=== PATIENT | male | born 1980 | race Caucasian/White ===

== ENCOUNTER 2016-09-24 02:00 | Emergency (ER) | payer OTHER ==
[2016-09-24 02:15] VITALS: TEMP 97.6
[2016-09-24] MEDS ORDERED: KETOROLAC 30 MG/ML 1 ML VIAL IVP STA (02:24)
[2016-09-24] MEDS ORDERED: SODIUM CHLORIDE 0.9% 500 ML IV STA (02:24)
[2016-09-24 02:35] LABS: Basophils # (A) 0.1 k/uL (0-0.2); Basophils % (A) 1 %; CH 32.1; CHCM 35.4; Eosinophils # (A) 0.3 k/uL (0-0.7); Eosinophils % (A) 2 %; HCT 49.7 % (39.0-53.0); HDW 2.71; HGB 16.7 gm/dL (13.0-17.5); Luc # (Auto) 0.18; Luc % (Auto) 2; Lymphocytes # (A) 4.1 k/uL (1.0-4.8); Lymphocytes % (A) 38 %; MCH 30.6 pg (25.0-35.0); MCHC 33.6 g/dL (31.0-37.0); MCV 91.1 fL (80.0-100.0); Mean Platelet Volume 7.9; Monocytes # (A) 0.5 k/uL (0-1.0); Monocytes % (A) 5 %; Neutrophils # (A) 5.7 k/uL (1.3-7.7); Neutrophils % (A) 53 %; RBC 5.46 m/uL (4.30-5.90); RDW 14.4 % (11.5-15.5); WBC 10.8 k/uL (3.8-10.6); WBC (Perox) 10.77
[2016-09-24 02:44] LABS: ALT 34 U/L (21-72); AST 23 U/L (17-59); Alkaline Phosphatase 73 U/L (38-126); Anion Gap 9 mmol/L; Blood Urea Nitrogen 14 mg/dL (9-20); Calcium 9.5 mg/dL (8.4-10.2); Carbon Dioxide 25 mmol/L (22-30); Chloride 109 mmol/L (98-107); Glucose 98 mg/dL (74-99); Non-African American GFR(MDRD) >60 (>60 ml/min/1.73 sqM); Potassium 4.1 mmol/L (3.5-5.1); Sodium 143 mmol/L (137-145); Total Bilirubin 0.4 mg/dL (0.2-1.3); Total Protein 6.5 g/dL (6.3-8.2)
[2016-09-24] MEDS ORDERED: MORPHINE SULFATE 4 MG/ML SYRINGE IVP STA (03:05)
[2016-09-24] MEDS ORDERED: SODIUM CHLORIDE 0.9% 1,000 ML IV SCH (03:15)
--- NOTE | 2016-09-24 03:36 | ED ---
Abdominal Pain HPI <CassiaJaspreet haile - Last Filed: 09/24/16 05:29> - General Source: patient, RN notes reviewed, old records reviewed Mode of arrival: ambulatory Limitations: no limitations <AviNancy - Last Filed: 09/24/16 13:38> - General Chief Complaint: Abdominal Pain Stated Complaint: abd pain,hernia Time Seen by Provider: 09/24/16 02:16 - History of Present Illness Initial Comments: Physical is a 36-year-old male presenting to the emergency Department chief complaint of periumbilical abdominal pain for the past 4 days. Patient reports that he coughed on Saturday and felt a bulge occur in his abdomen. Patient reports that last he felt this her to become increasingly painful. He was urged to go to a hospital yesterday. Patient went to [facility]. He reports that time they did blood work and did a CAT scan. They informed him that he had an incarcerated hernia that needed to be reduced. Patient reports that they attempted several times to reduce the hernia in the emergency department however was unsuccessful. Patient reports that he was supposed to see a surgeon but was becoming upset with the staff and then decided to leave. Patient reports that he realized the pain is getting worse and he needed to come tonight. He has no fevers or chills. He reports normal bowel movements and normal urination. He denies any vomiting. He reports that the pain was becoming worse this evening he felt that he could not wait to see his primary care physician. (Nancy Cárdenas) - Related Data Home Medications Medication Instructions Recorded Confirmed No Known Home Medications [No 09/24/16 09/24/16 Known Home Medications] Allergies Allergy/AdvReac Type Severity Reaction Status Date / Time Penicillins Allergy Rash/Hives Verified 09/24/16 02:15 Review of Systems ROS Other: All systems not noted in ROS Statement are negative. <Jaspreet Albarado - Last Filed: 09/24/16 05:29> ROS Other: All systems not noted in ROS Statement are negative. <Clare Cárdenasily - Last Filed: 09/24/16 13:38> ROS Statement: Those systems with pertinent positive or pertinent negative responses have been documented in the HPI. Past Medical History Past Medical History: No Reported History History of Any Multi-Drug Resistant Organisms: None Reported Past Surgical History: Orthopedic Surgery Additional Past Surgical History / Comment(s): L ankle sx. Past Psychological History: Bipolar Smoking Status: Current every day smoker Past Alcohol Use History: Rare Past Drug Use History: Marijuana <Nancy Cárdenas - Last Filed: 09/24/16 13:38> General Exam <Jaspreet Albarado - Last Filed: 09/24/16 05:29> Limitations: no limitations General appearance: alert, in no apparent distress Head exam: Present: atraumatic, normocephalic, normal inspection Eye exam: Present: normal appearance, PERRL, EOMI. Absent: scleral icterus, conjunctival injection, periorbital swelling ENT exam: Present: normal exam, mucous membranes moist Neck exam: Present: normal inspection. Absent: tenderness, meningismus, lymphadenopathy Respiratory exam: Present: normal lung sounds bilaterally. Absent: respiratory distress, wheezes, rales, rhonchi, stridor Cardiovascular Exam: Present: regular rate, normal rhythm, normal heart sounds. Absent: systolic murmur, diastolic murmur, rubs, gallop, clicks GI/Abdominal exam: Present: soft, normal bowel sounds, hernia (Patient has a 3- 4 cm area of her hernia over the superior umbilical region.). Absent: distended , tenderness, guarding, rebound, rigid Extremities exam: Present: normal inspection, full ROM, normal capillary refill. Absent: tenderness, pedal edema, joint swelling, calf tenderness Back exam: Present: normal inspection Neurological exam: Present: alert, oriented X3, CN II-XII intact Psychiatric exam: Present: normal affect, normal mood Skin exam: Present: warm, dry, intact, normal color. Absent: rash <Nancy Cárdenas - Last Filed: 09/24/16 13:38> - General Exam Comments Initial Comments: 36-year-old male. No acute distress. (Nancy Cárdenas) Medical Decision Making - Lab Data Result diagrams: 09/24/16 02:26 09/24/16 02:26 <Jaspreet Albarado - Last Filed: 09/24/16 05:29> - Lab Data Result diagrams: 09/24/16 02:26 09/24/16 02:26 <Nancy Cárdenas - Last Filed: 09/24/16 13:38> - Medical Decision Making 36-year-old male presents the ED chief complaint of hernia pain in the umbilical region. Lab work in [facility] from last night was obtained. Upon review the previous chart reports that the patient left AMA. Patient had a multiple attempts to re-douce the hernia. Patient did receive the CT with contrast at the time. The CT shows there is a small fat containing supraumbilical hernia seen an associate with internal and adjacent fat stranding. Likely representing incarceration or angulation of the fat. Upon review of the chart they did try to consult the surgeon Dr. Eastman who agreed with admission and anticipated taking the patient surgery in the morning. When patient was informed of this he was upset and an ounce that he's having care if he and did not want to be there anymore. They did advise him to not but he still left AMA. At this time patient presents with a firm mass over the periumbilical region. Lab work was obtained and compared to yesterday. No evidence of any abnormalities. Discussed this case with Dr. Albarado. Patient will be kept in the emergency department and to call for surgery will be placed at 7 in the morning, for further evaluation. I myself attempted to reduce the hernia after patient received Toradol and morphine. This was unsuccessful. ( Nancy Cárdenas) - Lab Data Lab Results 09/24/16 09/24/16 Range/Units 02:26 02:26 WBC 10.8 H (3.8-10.6) k/uL RBC 5.46 (4.30-5.90) m/uL Hgb 16.7 (13.0-17.5) gm/dL Hct 49.7 (39.0-53.0) % MCV 91.1 (80.0-100.0) fL MCH 30.6 (25.0-35.0) pg MCHC 33.6 (31.0-37.0) g/dL RDW 14.4 (11.5-15.5) % Plt Count 235 (150-450) k/uL Neutrophils % 53 % Lymphocytes % 38 % Monocytes % 5 % Eosinophils % 2 % Basophils % 1 % Neutrophils # 5.7 (1.3-7.7) k/uL Lymphocytes # 4.1 (1.0-4.8) k/uL Monocytes # 0.5 (0-1.0) k/uL Eosinophils # 0.3 (0-0.7) k/uL Basophils # 0.1 (0-0.2) k/uL Sodium 143 (137-145) mmol/L Potassium 4.1 (3.5-5.1) mmol/L Chloride 109 H (98-107) mmol/L Carbon Dioxide 25 (22-30) mmol/L Anion Gap 9 mmol/L BUN 14 (9-20) mg/dL Creatinine 1.00 (0.66-1.25) mg/dL Est GFR (MDRD) Af Amer >60 (>60 ml/min/1.73 sqM) Est GFR (MDRD) Non-Af >60 (>60 ml/min/1.73 sqM) Glucose 98 (74-99) mg/dL Calcium 9.5 (8.4-10.2) mg/dL Total Bilirubin 0.4 (0.2-1.3) mg/dL AST 23 (17-59) U/L ALT 34 (21-72) U/L Alkaline Phosphatase 73 (38-126) U/L Total Protein 6.5 (6.3-8.2) g/dL Albumin 3.9 (3.5-5.0) g/dL Lipase 72 (23-300) U/L Disposition <Jaspreet Albarado - Last Filed: 09/24/16 05:29> Time of Disposition: 13:36 - Out of Hospital Transfer - Req. Specs Out of Hospital Transfer - Requested Specifics: Other Non-Acute (Unable to determine, patient dispo by Dr. Albarado) <Nancy Cárdenas - Last Filed: 09/24/16 13:38> Clinical Impression: Umbilical hernia, incarcerated Disposition: OTHER INSTITUTION NOT DEFINED Condition: Fair Instructions: Umbilical Hernia (ED) Referrals: Shane Roy MD [Primary Care Provider] - 1-2 days Chaka Joshi MD [STAFF PHYSICIAN] - 1-2 days
[2016-09-24 05:21] VITALS: RESP 18
[2016-09-24 06:52] VITALS: BP 128/71; PULSE 54
== END 2016-09-24 06:57 | disposition short-term general hospital (02) ==
LOC: EC 02:00
DX: K42.0 Umbilical hernia with obstruction, without gangrene (principal); F17.200 Nicotine dependence, unspecified, uncomplicated; Z88.0 Allergy status to penicillin
CPT/HCPCS: 36415; 80053; 83690; 85025; 99285; 96374; 96375; 96361 ×4; J2270; J1885

== ENCOUNTER 2016-10-23 08:08 | Day surgery (SDC) | payer OTHER ==
[2016-10-17 14:22] VITALS: BMI 23.0
[~2016-10-23 08:08] MED LIST: DEXAMETHASONE SOD PHOSPHATE 10 MG/ML 1 ML VIAL IV ONE; HEPARIN SODIUM,PORCINE 5,000 UNIT/ML 1 ML VIAL SQ ONE; MIDAZOLAM 2 MG/2 ML VIAL IV PRN; ONDANSETRON 4 MG/2 ML VIAL IVP ONE; SCOPOLAMINE 1.5MG/72HR PATCH TRANSDERM ONE; ceFAZolin 2 GM in SODIUM CHLORIDE 0.9% 100 ML IVPB ONE
[2016-10-23] MEDS ORDERED: LACTATED RINGERS 1,000 ML IV ONE (09:52)
[2016-10-23] MEDS ORDERED: LIDOCAINE 1% 20 ML VIAL (10MG/ML) FOR IV START INTRADERMA ONE (09:52)
--- NOTE | 2016-10-23 10:38 | P.GSHP ---
History of Present Illness H&P Date: 10/23/16 Chief Complaint: Incarcerated ventral hernia This is a 36-year-old male referred from Dr. Lucas Lomax. Patient is today for laparoscopic robotic-assisted repair of incarcerated ventral hernia. Patient developed a painful mass over his umbilicus. He was seen in the office and found have an incarcerated ventral hernia. Past Medical History Past Medical History: COPD History of Any Multi-Drug Resistant Organisms: None Reported Past Surgical History: Orthopedic Surgery Additional Past Surgical History / Comment(s): L ankle sx. Past Anesthesia/Blood Transfusion Reactions: No Reported Reaction Smoking Status: Current every day smoker - Past Family History Mother Family Medical History: Cancer Medications and Allergies Home Medications Medication Instructions Recorded Confirmed Type No Known Home Medications [No 09/24/16 10/17/16 History Known Home Medications] Allergies Allergy/AdvReac Type Severity Reaction Status Date / Time bee pollen Allergy Anaphylaxis Verified 10/17/16 14:19 Penicillins Allergy Rash/Hives Verified 10/17/16 12:21 Surgical - Exam Vital Signs Temp Pulse Resp BP Pulse Ox 98.0 F 63 18 130/82 97 10/23/16 09:49 10/23/16 09:49 10/23/16 09:49 10/23/16 09:49 10/23/16 09:49 - General well developed, no distress - Eyes PERRL - ENT normal pinna - Neck no masses - Respiratory normal expansion - Cardiovascular Rhythm: regular - Abdomen Abdomen: soft, non tender (Incarcerated ventral hernia, 3 cm above the umbilicus ) Assessment and Plan Plan: Incarcerated ventral hernia. We'll perform laparoscopic robotic-assisted repair.
[2016-10-23] MEDS ORDERED: BUPIVACAINE (PF) 0.25% 30 ML VIAL SQ ONE (11:07)
[2016-10-23] MEDS ORDERED: ROCURONIUM BROMIDE 10 MG/ML 10 ML VIAL IV ONE (11:08)
[2016-10-23] MEDS ORDERED: LIDOCAINE 1% INJ 10MG/ML (20 ML MDV) ONE (11:08)
[2016-10-23] MEDS ORDERED: fentaNYL (PF) 50 MCG/ML 2 ML AMP ONE (11:08)
[2016-10-23] MEDS ORDERED: GLYCOPYRROLATE 0.2 MG/ML 2 ML VIAL ONE (11:08)
[2016-10-23] MEDS ORDERED: MIDAZOLAM 2 MG/2 ML VIAL ONE (11:08)
[2016-10-23] MEDS ORDERED: NEOSTIGMINE 1 MG/ML 10 ML VIAL ONE (11:08)
[2016-10-23] MEDS ORDERED: PROPOFOL 10 MG/ML 20 ML VIAL IV ONE (11:08)
[2016-10-23] MEDS ORDERED: HYDROmorphone (PF) 1 MG/ML ONE (11:08)
[2016-10-23] MEDS ORDERED: SUCCINYLCHOLINE CHLORIDE 100 MG/5 ML SYR IV ONE (11:08)
[2016-10-23] MEDS: MEPERIDINE 50 MG/ML SYRINGE IVP ONE ×2 (12:16→12:28)
[2016-10-23] MEDS: LACTATED RINGERS 1,000 ML IV SCH ×2 (12:28→13:21)
[2016-10-23] MEDS: HYDROmorphone 1 MG/ML 1 ML SYRINGE IVP PRN ×2 (12:52→12:57)
[2016-10-23] MEDS ORDERED: KETOROLAC 30 MG/ML 1 ML VIAL IVP ONE (13:04)
[2016-10-23] MEDS ORDERED: HYDROcodone/APAP 7.5-325MG 1 EACH TAB PO ONE (14:08)
[2016-10-23 14:13] VITALS: TEMP 97.6
[2016-10-23 14:56] VITALS: BP 145/91; PULSE 67; RESP 18
--- NOTE | 2016-10-31 07:42 | P.OP ---
Date of Procedure: 10/23/16 Preoperative Diagnosis: incarcerated ventral hernia Postoperative Diagnosis: incarcerated ventral hernia Procedure(s) Performed: laparoscopic robotic assisted repair of incarcerated ventral hernia Partial omentectomy Anesthesia: KATHY Surgeon: Chaka Joshi Estimated Blood Loss (ml): 5 Condition: stable Disposition: PACU Description of Procedure: the patient was placed on the operative table in the supine position. His abdomen was prepped and draped in usual sterile fashion. Patient had a mass above his umbilicus. The skin incision sites were anesthetized 1% local Xylocaine. Using a 5 mm optical trocar under direct visualization the peritoneal cavity was entered in the left upper quadrant. After adequate insufflation the laparoscope was placed into the perineal cavity. Next a 8 mm robotic trocar was placed in the left lower quadrant and a 12 mm trocar was placed the left lateral position and the original 5 mm trocar was exchanged for an 8 mm trocar. The patient was then docked to the robot. His left side had been positioned up. The incarcerated fat was then dissected from the hernia using the hook cautery. The fascial defect was closed using LV lock suture. Next the ventral AST mesh was secured using 20V lock suture. The patient was undocked the robot. The needles were retrieved. The incarcerated fat was retrieved. The fascial defect of the 12 mm trocar site was closed with 0 Ethibond suture using a Dada Durbin suture passer. The trochars were then withdrawn. The skin was closed with interrupted 3-0 Monocryl suture. Dermabond was applied. Patient was sent to recovery in stable condition.
== END 2016-10-23 14:53 | disposition home or self-care (01) ==
LOC: OR 08:08
PROVIDERS: ATTEND Surgery
DX: K43.6 Other and unspecified ventral hernia with obstruction, without gangrene (principal); J44.9 Chronic obstructive pulmonary disease, unspecified; F17.200 Nicotine dependence, unspecified, uncomplicated; Z88.0 Allergy status to penicillin; Z91.030 Bee allergy status
CPT/HCPCS: 49653; S2900; 86850; 86900; 86901; 88302

== ENCOUNTER → 2017-01-02 | Outpatient (CLI) | payer OTHER ==
--- NOTE | 2017-01-03 08:12 | CT ---
EXAMINATION TYPE: CT abdomen pelvis w con DATE OF EXAM: 01/02/2017 COMPARISON: NONE HISTORY: LLQ PAIN X3 WEEKS. CT DLP: 520.8 mGycm CONTRAST: CT scan of the abdomen and pelvis is performed with Oral Contrast and with IV Contrast, patient injec nicolas with 100 mL of Omnipaque 300. FINDINGS: LUNG BASES-: No visible nodule. No infiltrate. Small sliding-type hiatal hernia. LIVER/GB: No calcified gallstones. No space occupying hepatic lesion. Biliary tree is of normal ca liber. PANCREAS: No inflammation. No distinct mass. SPLEEN: No splenic enlargement. No lesion seen. ADRENALS: No nodule. No thickening. KIDNEYS/BLADDER: No hydronephrosis. No nephrolithiasis. No distinct renal mass. Urinary bladder is poorly distended. BOWEL: Normal appendix. Nonspecific gastric distention. Normal bowel caliber. No inflammation. GENITAL ORGANS: No gross abnormality. LYMPH NODES: No greater than 1cm abdominal or pelvic lymph nodes are appreciated. AORTA: No significant abnormality. OSSEOUS STRUCTURES: No significant abnormality is seen. OTHER: No significant additional abnormality is seen. IMPRESSION: 1. Nonspecific gastric distention. 2. Small sliding-type hiatal hernia.
== END | disposition home or self-care (01) ==
LOC: RADCTMAIN 19:06
PROVIDERS: ATTEND Internal Medicine
DX: K44.9 Diaphragmatic hernia without obstruction or gangrene (principal)
CPT/HCPCS: 74177; Q9967

== ENCOUNTER → 2019-12-29 | Outpatient (CLI) | payer OTHER ==
--- NOTE | 2019-12-30 08:46 | MR ---
EXAMINATION TYPE: MR knee RT wo con DATE OF EXAM: 12/29/2019 COMPARISON: Plain film right knee 12/02/2019 HISTORY: Pain in right knee x3 months TECHNIQUE: Multiplanar, multisequence imaging of the right knee is performed without IV contrast. FINDINGS: MEDIAL MENISCUS: Anterior and posterior horns are intact without tear. Some mild degenerative change may be within the posterior horn medial meniscus. LATERAL MENISCUS: Anterior and posterior horns are intact without tear. CRUCIATE LIGAMENTS: The anterior and posterior cruciate ligaments are intact and unremarkable. COLLATERAL LIGAMENTS: The medial collateral ligament and lateral collateral ligament complex are inta ct and unremarkable. EXTENSOR MECHANISM: Visualized quadriceps and patellar tendons are intact. EFFUSION: No significant suprapatellar joint effusion. POPLITEAL CYST: No popliteal/kiran cyst. TRICOMPARTMENT SPACES: Preserved. CARTILAGE: Mild diffuse articular cartilage thinning is evident. BONE MARROW SIGNAL: No focal abnormal marrow signal is appreciated. OTHER: No additional significant abnormality is appreciated. IMPRESSION: 1. Mild thinning of the articular cartilage. 2. Mild posterior horn medial meniscal degenerative type change. No acute meniscal tears are identifi ed.
== END | disposition home or self-care (01) ==
LOC: RADMRIMAIN 10:54
PROVIDERS: ATTEND Orthopaedic Surgery
DX: M23.91 Unspecified internal derangement of right knee (principal); M23.321 Other meniscus derangements, posterior horn of medial meniscus, right knee

== ENCOUNTER → 2020-03-28 | Outpatient (CLI) | payer OTHER ==
[2020-03-28 09:29] LABS: Basophils # (A) 0.2 k/uL (0-0.2); Basophils % (A) 2 %; Eosinophils # (A) 0.4 k/uL (0-0.7); Eosinophils % (A) 4 %; HCT 47.1 % (39.0-53.0); HGB 15.8 gm/dL (13.0-17.5); Lymphocytes # (A) 2.7 k/uL (1.0-4.8); Lymphocytes % (A) 25 %; MCH 30.8 pg (25.0-35.0); MCHC 33.5 g/dL (31.0-37.0); MCV 91.9 fL (80.0-100.0); Mean Platelet Volume 7.1; Monocytes # (A) 0.7 k/uL (0-1.0); Monocytes % (A) 6 %; Neutrophils # (A) 6.4 k/uL (1.3-7.7); Neutrophils % (A) 60 %; Platelet Count 316 k/uL (150-450); RBC 5.12 m/uL (4.30-5.90); RDW 13.3 % (11.5-15.5); WBC 10.5 k/uL (3.8-10.6)
[2020-03-28 09:53] LABS: Potassium 5.4 mmol/L (3.5-5.1)
== END | disposition home or self-care (01) ==
LOC: LABPAT 08:52
PROVIDERS: ATTEND Orthopaedic Surgery
DX: M23.91 Unspecified internal derangement of right knee (principal)
CPT/HCPCS: 36415; 80051; 85025

== ENCOUNTER 2020-03-31 18:29 | Emergency (ER) | payer OTHER ==
[2020-03-31] MEDS ORDERED: KETOROLAC 15 MG/ML 1 ML VIAL IVP STA (18:44)
[2020-03-31] MEDS ORDERED: ORPHENADRINE 30 MG/ML 2 ML VIAL IVP STA (18:44)
--- NOTE | 2020-03-31 18:47 | ED ---
SOB HPI - General Chief Complaint: Shortness of Breath Stated Complaint: Rib pain/sob/cough Time Seen by Provider: 03/31/20 18:37 Source: patient, RN notes reviewed Mode of arrival: ambulatory Limitations: no limitations - History of Present Illness Initial Comments: This is a 39-year-old male was a smoker who states she's had right-sided chest wall pain and rib pain for last 2 weeks is had really bad today he states is 10 out of 10 in severity sharp stabbing in nature admitted for smoking around 10 AM this morning. No overt fevers chills or sweats he does have somewhat of a off production no rashes no other modifying factors at this time MD Complaint: chest pain - Related Data Previous Rx's Medication Instructions Recorded Doxycycline [Vibramycin] 100 mg PO BID 1 Days #20 capsule 03/31/20 Ketorolac [Toradol] 10 mg PO Q6HR #20 tab 03/31/20 Orphenadrine [Norflex] 100 mg PO Q12H #7 tablet.er 03/31/20 predniSONE [Deltasone] 20 mg PO BID #10 tab 03/31/20 Allergies Allergy/AdvReac Type Severity Reaction Status Date / Time bee pollen Allergy Anaphylaxis Verified 03/31/20 18:34 Penicillins Allergy Rash/Hives Verified 03/31/20 18:34 Review of Systems ROS Statement: Those systems with pertinent positive or pertinent negative responses have been documented in the HPI. ROS Other: All systems not noted in ROS Statement are negative. Past Medical History Past Medical History: COPD History of Any Multi-Drug Resistant Organisms: None Reported Past Surgical History: Orthopedic Surgery Additional Past Surgical History / Comment(s): L ankle sx. Past Anesthesia/Blood Transfusion Reactions: No Reported Reaction Past Psychological History: Bipolar, PTSD Smoking Status: Current every day smoker Past Alcohol Use History: None Reported Past Drug Use History: Marijuana - Past Family History Mother Family Medical History: Cancer General Exam - General Exam Comments Initial Comments: This is a well-developed well-nourished awake alert oriented 3 male Limitations: no limitations General appearance: alert, anxious Head exam: Present: atraumatic, normocephalic, normal inspection Eye exam: Present: normal appearance, PERRL, EOMI. Absent: scleral icterus, conjunctival injection, periorbital swelling ENT exam: Present: normal exam, mucous membranes moist Neck exam: Present: normal inspection. Absent: tenderness, meningismus, lymphadenopathy Respiratory exam: Present: chest wall tenderness, decreased breath sounds. Absent: respiratory distress, wheezes, rales, rhonchi, stridor Cardiovascular Exam: Present: regular rate, normal rhythm, normal heart sounds. Absent: systolic murmur, diastolic murmur, rubs, gallop, clicks GI/Abdominal exam: Present: soft, normal bowel sounds. Absent: distended, tenderness, guarding, rebound, rigid Extremities exam: Present: normal inspection, full ROM, normal capillary refill. Absent: tenderness, pedal edema, joint swelling, calf tenderness Back exam: Present: normal inspection Neurological exam: Present: alert, oriented X3, CN II-XII intact Psychiatric exam: Present: normal affect, normal mood Skin exam: Present: warm, dry, intact, normal color. Absent: rash Course Vital Signs 03/31/20 03/31/20 03/31/20 18:31 18:44 19:18 Temperature 98.3 F Pulse Rate 103 H 79 Respiratory 20 20 18 Rate Blood Pressure 177/97 127/85 O2 Sat by Pulse 98 96 Oximetry Medical Decision Making - Medical Decision Making I did discuss findings with the patient he is feeling improved at this time the pain is consistent with chest wall pain likely myofascial (pleuritic pain is not totally ruled out. She'll be discharged on appropriate medication is a follow- up with his doctor and return when necessary - Lab Data Result diagrams: 03/31/20 19:04 03/31/20 19:04 Lab Results 03/31/20 03/31/20 03/31/20 Range/Units 19:04 19:04 19:04 WBC 12.7 H (3.8-10.6) k/uL RBC 5.28 (4.30-5.90) m/uL Hgb 16.2 (13.0-17.5) gm/dL Hct 47.8 (39.0-53.0) % MCV 90.6 (80.0-100.0) fL MCH 30.7 (25.0-35.0) pg MCHC 33.9 (31.0-37.0) g/dL RDW 13.3 (11.5-15.5) % Plt Count 370 (150-450) k/uL MPV 7.3 Neutrophils % 66 % Lymphocytes % 22 % Monocytes % 6 % Eosinophils % 4 % Basophils % 1 % Neutrophils # 8.4 H (1.3-7.7) k/uL Lymphocytes # 2.8 (1.0-4.8) k/uL Monocytes # 0.8 (0-1.0) k/uL Eosinophils # 0.5 (0-0.7) k/uL Basophils # 0.2 (0-0.2) k/uL PT 10.1 (9.0-12.0) sec INR 0.9 (<1.2) APTT 26.0 (22.0-30.0) sec D-Dimer 0.30 (<0.60) mg/L FEU Sodium 136 L (137-145) mmol/L Potassium 4.5 (3.5-5.1) mmol/L Chloride 104 (98-107) mmol/L Carbon Dioxide 23 (22-30) mmol/L Anion Gap 9 mmol/L BUN 18 (9-20) mg/dL Creatinine 0.91 (0.66-1.25) mg/dL Est GFR (CKD-EPI)AfAm >90 (>60 ml/min/1.73 sqM) Est GFR (CKD-EPI)NonAf >90 (>60 ml/min/1.73 sqM) Glucose 117 H (74-99) mg/dL Calcium 9.4 (8.4-10.2) mg/dL Magnesium 2.1 (1.6-2.3) mg/dL Total Bilirubin 0.4 (0.2-1.3) mg/dL AST 33 (17-59) U/L ALT 45 (4-49) U/L Alkaline Phosphatase 89 (38-126) U/L Creatine Kinase 82 (55-170) U/L Troponin I (0.000-0.034) ng/mL Total Protein 7.6 (6.3-8.2) g/dL Albumin 4.2 (3.5-5.0) g/dL Lipase 147 (23-300) U/L 03/31/20 Range/Units 19:04 WBC (3.8-10.6) k/uL RBC (4.30-5.90) m/uL Hgb (13.0-17.5) gm/dL Hct (39.0-53.0) % MCV (80.0-100.0) fL MCH (25.0-35.0) pg MCHC (31.0-37.0) g/dL RDW (11.5-15.5) % Plt Count (150-450) k/uL MPV Neutrophils % % Lymphocytes % % Monocytes % % Eosinophils % % Basophils % % Neutrophils # (1.3-7.7) k/uL Lymphocytes # (1.0-4.8) k/uL Monocytes # (0-1.0) k/uL Eosinophils # (0-0.7) k/uL Basophils # (0-0.2) k/uL PT (9.0-12.0) sec INR (<1.2) APTT (22.0-30.0) sec D-Dimer (<0.60) mg/L FEU Sodium (137-145) mmol/L Potassium (3.5-5.1) mmol/L Chloride (98-107) mmol/L Carbon Dioxide (22-30) mmol/L Anion Gap mmol/L BUN (9-20) mg/dL Creatinine (0.66-1.25) mg/dL Est GFR (CKD-EPI)AfAm (>60 ml/min/1.73 sqM) Est GFR (CKD-EPI)NonAf (>60 ml/min/1.73 sqM) Glucose (74-99) mg/dL Calcium (8.4-10.2) mg/dL Magnesium (1.6-2.3) mg/dL Total Bilirubin (0.2-1.3) mg/dL AST (17-59) U/L ALT (4-49) U/L Alkaline Phosphatase (38-126) U/L Creatine Kinase (55-170) U/L Troponin I <0.012 (0.000-0.034) ng/mL Total Protein (6.3-8.2) g/dL Albumin (3.5-5.0) g/dL Lipase (23-300) U/L - EKG Data -: EKG Interpreted by Vt EKG shows normal: sinus rhythm, axis, intervals, QRS complexes, ST-T waves Rate: normal EKG Comments: Was sinus rhythm a 78. Interval 138 QRS duration 78 QT/QTC 380/[address]- T wave changes - Radiology Data Radiology results: report reviewed (I did review the imaging and report no acute findings.), image reviewed Disposition Clinical Impression: Chest wall pain, Pleurisy, Bronchitis Disposition: HOME SELF-CARE Condition: Good Instructions (If sedation given, give patient instructions): Acute Bronchitis (ED), Chest Wall Pain (ED), Pleurisy (DC) Prescriptions: predniSONE [Deltasone] 20 mg PO BID #10 tab Orphenadrine [Norflex] 100 mg PO Q12H #7 tablet.er Ketorolac [Toradol] 10 mg PO Q6HR #20 tab Doxycycline [Vibramycin] 100 mg PO BID 1 Days #20 capsule Is patient prescribed a controlled substance at d/c from ED?: No Referrals: Shane Roy MD [Primary Care Provider] - 1-2 days
[2020-03-31 19:38] LABS: Basophils # (A) 0.2 k/uL (0-0.2); Basophils % (A) 1 %; Eosinophils # (A) 0.5 k/uL (0-0.7); Eosinophils % (A) 4 %; HCT 47.8 % (39.0-53.0); HGB 16.2 gm/dL (13.0-17.5); Lymphocytes # (A) 2.8 k/uL (1.0-4.8); Lymphocytes % (A) 22 %; MCH 30.7 pg (25.0-35.0); MCHC 33.9 g/dL (31.0-37.0); MCV 90.6 fL (80.0-100.0); Mean Platelet Volume 7.3; Monocytes # (A) 0.8 k/uL (0-1.0); Monocytes % (A) 6 %; Neutrophils # (A) 8.4 k/uL (1.3-7.7); Neutrophils % (A) 66 %; Platelet Count 370 k/uL (150-450); RBC 5.28 m/uL (4.30-5.90); RDW 13.3 % (11.5-15.5); WBC 12.7 k/uL (3.8-10.6)
[2020-03-31 19:49] LABS: D-Dimer 0.3 mg/L FEU (<0.60); INR 0.9 (<1.2); Prothrombin Time 10.1 sec (9.0-12.0)
[2020-03-31 19:58] LABS: ALT 45 U/L (4-49); AST 33 U/L (17-59); African American GFR (CKD) >90 (>60 ml/min/1.73 sqM); Albumin 4.2 g/dL (3.5-5.0); Alkaline Phosphatase 89 U/L (38-126); Anion Gap 9 mmol/L; Blood Urea Nitrogen 18 mg/dL (9-20); Calcium 9.4 mg/dL (8.4-10.2); Carbon Dioxide 23 mmol/L (22-30); Chloride 104 mmol/L (98-107); Creatine Kinase 82 U/L (55-170); Glucose 117 mg/dL (74-99); Lipase 147 U/L (23-300); Magnesium 2.1 mg/dL (1.6-2.3); Non-African American GFR(CKD) >90 (>60 ml/min/1.73 sqM); Potassium 4.5 mmol/L (3.5-5.1); Sodium 136 mmol/L (137-145); Total Bilirubin 0.4 mg/dL (0.2-1.3); Total Protein 7.6 g/dL (6.3-8.2)
--- NOTE | 2020-03-31 20:16 | XR ---
EXAMINATION: XR chest 2V DATE AND TIME: 03/31/2020 7:40 PM CLINICAL INDICATION: PHH; Chest Pain TECHNIQUE: Departmental protocol COMPARISON: None FINDINGS: The lungs are clear. The pleural spaces are negative for abnormal gas or fluid collections. The cardiac silhouette is not enlarged. The remainder of the mediastinal silhouette is unremarkable. The skeletal structures and soft tissues are negative for acute findings. Specifically, the right low er lateral rib are negative for fracture IMPRESSION: No acute radiographic process.
--- NOTE | 2020-03-31 20:18 | XR ---
PROCEDURE: XR ribs RT - 4V DATE AND TIME: 03/31/2020 7:40 PM CLINICAL INDICATION: PHH; Chest pain TECHNIQUE: Department protocol COMPARISON: Chest radiograph 03/31/2020 FINDINGS: There is no fracture or malalignment. The pleural spaces are negative. The soft tissues are unremarkable. IMPRESSION: Negative for fracture or malalignment.
[2020-03-31 21:20] VITALS: BP 139/91; PULSE 68; RESP 16; TEMP 97.6
== END 2020-03-31 21:15 | disposition home or self-care (01) ==
LOC: EC 18:29
DX: J40 Bronchitis, not specified as acute or chronic (principal); R09.1 Pleurisy; F17.200 Nicotine dependence, unspecified, uncomplicated; Z88.0 Allergy status to penicillin; Z91.030 Bee allergy status
CPT/HCPCS: 36415; 93005; 85379; 80053; 82550; 83690; 83735; 84484; 85025; 85610; 85730; 71100; 71046; 99285; 96374; 96375; J2360; J1885